=== PATIENT | female | born 1940 | race Caucasian/White ===

== ENCOUNTER 2018-02-04 18:12 | Inpatient (IN) | payer MEDICARE, MEDICAID ==
[~2018-02-04] VITALS: Ht 165.1 cm; Wt 93.0 kg
[2018-02-04 20:45] VITALS: BP 133/50
--- NOTE | 2018-02-04 21:00 | NUR ---
Admitting 77 y/o F admitted to [facility] for S/P L Total Hip Replacement done by Dr. Muller on 01/31/18. Arrived via ambulance accompanied by 2 EMT's. No acute distress noted. Verbally responsive, mainly Congolese speaking but can communicate basic needs in nigerien. Routine admission care done. Dr. Arechiga made aware of pt arrival and med recon. Medication reconciliation completed. Skin intact other than left hip incision. Per Xuan RN at [facility], unsure if first dressing complete. Dressing dry and intact. Dr. Vergara made aware of patient admission. All safety measures and fall precautions maintained. Call light and personal belongings within reach. Will continue to monitor.
[2018-02-04] MEDS ORDERED: Z GUARD REMEDY PASTE 57 GM TUBE TOP PRN (21:45)
[2018-02-04] MEDS ORDERED: ALLO100T PO (21:56)
[2018-02-04] MEDS ORDERED: ASPI-612 PO (21:56)
[2018-02-04] MEDS ORDERED: ACET-73 PO (21:56)
[2018-02-04] MEDS ORDERED: SITA1TAB2 PO (21:56)
[2018-02-04] MEDS ORDERED: MELO15TA13 PO (21:56)
[2018-02-04] MEDS ORDERED: METO-357 PO (21:56)
[2018-02-04] MEDS ORDERED: ATOR20TA PO (21:56)
[2018-02-04] MEDS ORDERED: MELO-105 PO (21:56)
[2018-02-04] MEDS ORDERED: CELE200C PO (21:56)
[2018-02-04] MEDS ORDERED: HYDR12.55 PO (21:56)
[2018-02-04] MEDS ORDERED: LEVO125T8 PO (21:56)
[2018-02-04] MEDS ORDERED: OMEP20CA10 PO (21:56)
[2018-02-04] MEDS ORDERED: ASPI81TA31 PO (21:56)
[2018-02-04] MEDS ORDERED: DEXTROSE 50% 50 ML DISP.SYRIN IV PRN (22:30)
[2018-02-04] MEDS: ZOLPIDEM 5 MG TABLET PO PRN (23:23)
[2018-02-05 04:00] VITALS: BP 146/71
[2018-02-05] MEDS: PANTOPRAZOLE SODIUM 40 MG TABLET.DR PO SCH (06:30)
[2018-02-05] MEDS: LEVOTHYROXINE SODIUM 125 MCG TABLET PO SCH (06:31)
[2018-02-05] MEDS: BLOOD SUGAR DIAGNOSTIC 1 EACH STRIP VI SCH ×4 (06:31→22:04)
[2018-02-05 06:32] LABS: BASOPHILS # (AUTO) 0.1 K/uL (0.0-8.0); BASOPHILS % (AUTO) 0.8 % (0.0-2.0); EOSINOPHILS # (AUTO) 0.5 K/uL (0.0-0.7); EOSINOPHILS % (AUTO) 5.3 % (0.0-7.0); HEMATOCRIT 25.4 % (31.2-41.9); HEMOGLOBIN 8.7 g/dL (10.9-14.3); LYMPHOCYTES # (AUTO) 2.4 K/uL (20.0-40.0); LYMPHOCYTES % (AUTO) 27.3 % (20.5-51.5); MEAN CORPUSCULAR HEMOGLOBIN 29.6 uug (24.7-32.8); MEAN CORPUSCULAR HGB CONC 34 g/dL (32.3-35.6); MEAN CORPUSCULAR VOLUME 86.5 fL (75.5-95.3); MONOCYTES # (AUTO) 0.6 K/uL (2.0-10.0); MONOCYTES % (AUTO) 6.9 % (0.0-11.0); NEUTROPHILS # (AUTO) 5.2 K/uL (1.8-8.9); NEUTROPHILS % (AUTO) 59.7 % (38.5-71.5); PLATELET COUNT (AUTO) 233 K/uL (179-408); RED BLOOD CELL COUNT(AUTO) 2.94 MIL/uL (3.63-4.92); WHITE BLOOD COUNT (AUTO) 8.7 K/uL (3.8-11.8)
--- NOTE | 2018-02-05 06:49 | NUR ---
Pt slept comfortably throughout shift, no complaints of pain through out shift. All due medications given as ordered, tolerated well. All needs anticipated and met accordingly. Blood sugar checked and noted with sugar of 104. Safety maintained. Call light and all personal belongings within reach. Will continue to monitor. Will endorse to oncoming shift.
[2018-02-05 07:20] LABS: ALANINE AMINOTRANSFERASE 17 U/L (14-59); ALKALINE PHOSPHATASE 67 U/L (50-136); ASPARTATE AMINOTRANSFERASE 20 U/L (15-37); BILIRUBIN,TOTAL 0.9 mg/dL (0.2-1.0); CARBON DIOXIDE 27 mmol/L (21-32); CHLORIDE 101 mmol/L (98-107); CHOLESTEROL 101 mg/dL (<200); CREATININE 0.6 mg/dL (0.6-1.3); GLUCOSE 104 mg/dL (74-106); HDL CHOLESTEROL 41 mg/dL (40-60); MAGNESIUM 1.9 mg/dL (1.8-2.4); PHOSPHOROUS 3.4 mg/dL (2.5-4.9); POTASSIUM 4.2 mmol/L (3.5-5.1); TOTAL PROTEIN, SERUM 5.6 g/dL (6.4-8.2); TRIGLYCERIDES 72 MG/DL (30-150); UREA NITROGEN, BLOOD 7 mg/dL (7-18)
--- NOTE | 2018-02-05 07:30 | NUR ---
Rec'd pt in bed awake. A & O x4. No s/s of acute distress noted. Pt s/p left hip arthroplasty. Surgical incision site dressing in c/d/i. Denies pain at this time. Pending PT eval for weight bearing status to L Hip. All needs met at this time. Call light within reach. Will continue to monitor for change.
[2018-02-05] MEDS: ASPIRIN 325 MG TABLET PO SCH (08:21)
[2018-02-05] MEDS: MELOXICAM 7.5 MG TABLET PO SCH (08:21)
[2018-02-05] MEDS: ALLOPURINOL 100 MG TABLET PO SCH ×2 (08:21→16:47)
[2018-02-05] MEDS: HYDROCHLOROTHIAZIDE 12.5 MG CAPSULE PO SCH (08:21)
[2018-02-05] MEDS: METOPROLOL SUCCINATE XL 50 MG TAB.SR.24H PO SCH (08:21)
--- NOTE | 2018-02-05 08:30 | NUR ---
Full SBAR report given to RICK Miranad. Pt will transfer to ARU.
[2018-02-05] MEDS ORDERED: Medication Not On Formulary EA (Hydrochlorothiazide 12.5 MG) PO SCH (09:00)
[2018-02-05] MEDS ORDERED: Medication Not On Formulary EA (Meloxicam (Mobic) 15 MG) PO SCH (09:00)
--- NOTE | 2018-02-05 09:00 | NUR ---
Received patient awake, alert x4. Not in any form of distress. Original surgical dressing in place, dry and intact no discharges noted. With tolerble pain. Oriented about therapy schedule.
[2018-02-05] MEDS: LINAGLIPTIN 5 MG TABLET PO SCH (09:46)
[2018-02-05] MEDS: METFORMIN HCL 500 MG TABLET PO SCH ×2 (09:46→17:39)
--- NOTE | 2018-02-05 10:20 | NUR ---
Informed Dr. Vergara over pain over left hip unable to rate, Bhatti-knapp scale of 6/10. Ordered OxyIR 5 mg q4hr PRN
[2018-02-05] MEDS: OXYCODONE HCL 5 MG TABLET PO PRN ×2 (10:30→15:39)
[2018-02-05] MEDS: INSULIN REGULAR, HUMAN 300 UNIT/3 ML VIAL SQ PRN ×2 (12:14→16:47)
[2018-02-05 14:49] LABS: IRON, SERUM 27 ug/dL (50-175)
[2018-02-05] MEDS ORDERED: VALS160T2 PO (17:51)
[2018-02-05 18:02] VITALS: BP 111/60
[2018-02-05] MEDS: VALSARTAN 160 MG TABLET PO SCH (18:05)
[2018-02-05 20:11] VITALS: BP 122/69
--- NOTE | 2018-02-05 20:28 | NUR ---
SBAR report received. aaox4 patient had a left total hip replacement by Dr Muller on 01/31/18 in [facility]. VSS Needs attended. Left hip dressing clean dry and intact. No acute distress noted.Continent of bowel and bladder. Denies any pain at this time. Patient had one episode of vomiting this shift. Will monitor for further nausea/vomiting.
[2018-02-05] MEDS: DOCUSATE SODIUM 100 MG CAPSULE PO SCH (22:00)
[2018-02-05] MEDS: ATORVASTATIN 20 MG TABLET PO SCH (22:01)
[2018-02-05] MEDS: ZOLPIDEM 5 MG TABLET PO PRN (22:06)
[2018-02-05] MEDS: FERROUS GLUCONATE 324 MG TABLET PO SCH (22:11)
--- NOTE | 2018-02-06 05:31 | NUR ---
slept well most of the shift. Tolerated po meds well. Kept comfortable. needs attended. VSS. no complaints presented so far during shift.
[2018-02-06 05:55] VITALS: BP 134/60
[2018-02-06] MEDS: LEVOTHYROXINE SODIUM 125 MCG TABLET PO SCH (06:36)
[2018-02-06] MEDS: PANTOPRAZOLE SODIUM 40 MG TABLET.DR PO SCH (06:36)
[2018-02-06] MEDS: BLOOD SUGAR DIAGNOSTIC 1 EACH STRIP VI SCH ×4 (06:38→20:44)
[2018-02-06 08:00] VITALS: BP 128/67
--- NOTE | 2018-02-06 08:00 | NUR ---
Patient noted resting in bed with eyes closed, no complaints of pain at this time, no signs of distress, call light in reach, bed locked and in lowest position, all needs met at this time
[2018-02-06] MEDS: LINAGLIPTIN 5 MG TABLET PO SCH (08:34)
[2018-02-06] MEDS: MELOXICAM 7.5 MG TABLET PO SCH (08:34)
[2018-02-06] MEDS: METFORMIN HCL 500 MG TABLET PO SCH ×2 (08:34→17:33)
[2018-02-06] MEDS: ASPIRIN 325 MG TABLET PO SCH (08:34)
[2018-02-06] MEDS: HYDROCHLOROTHIAZIDE 12.5 MG CAPSULE PO SCH (08:34)
[2018-02-06] MEDS: ALLOPURINOL 100 MG TABLET PO SCH ×2 (08:34→17:33)
[2018-02-06] MEDS: FERROUS GLUCONATE 324 MG TABLET PO SCH ×2 (08:35→20:37)
[2018-02-06] MEDS: METOPROLOL SUCCINATE XL 50 MG TAB.SR.24H PO SCH (08:35)
[2018-02-06] MEDS: VALSARTAN 160 MG TABLET PO SCH (08:35)
--- NOTE | 2018-02-06 12:00 | NUR ---
WOUND CARE CONSULT: PT PRESENTS WITH INTACT SKIN, FEW SCRATCH LIPSCOMB ON BUTTOCKS, PRESENT ON ADMISSION. PT IS CONTINENT AND ABLE TO ASSIST WITH TURNING AND REPOSITIONING. WILL SEE PRN. DISCUSSED SKIN PROTECTION WITH NURSING STAFF. MD IN AGREEMENT WITH PLAN OF CARE.
[2018-02-06 16:00] VITALS: BP 122/75
[2018-02-06 19:52] VITALS: BP 125/64
[2018-02-06] MEDS: DOCUSATE SODIUM 100 MG CAPSULE PO SCH (20:36)
[2018-02-06] MEDS: ATORVASTATIN 20 MG TABLET PO SCH (20:37)
[2018-02-06] MEDS: OXYCODONE HCL 5 MG TABLET PO PRN (20:37)
[2018-02-06] MEDS: ZOLPIDEM 5 MG TABLET PO PRN (20:57)
--- NOTE | 2018-02-07 04:43 | NUR ---
quiet night. no acute distress noted. VSS. needs attended. kept comfortable. pain med given as needed. tolerated po meds well. will monitor patient. fall precautions maintained.
[2018-02-07 06:32] VITALS: BP 115/61
[2018-02-07] MEDS: LEVOTHYROXINE SODIUM 125 MCG TABLET PO SCH (06:41)
[2018-02-07] MEDS: PANTOPRAZOLE SODIUM 40 MG TABLET.DR PO SCH (06:41)
[2018-02-07 08:00] VITALS: BP 123/59
[2018-02-07] MEDS: ASPIRIN 325 MG TABLET PO SCH (08:48)
[2018-02-07] MEDS: LINAGLIPTIN 5 MG TABLET PO SCH (08:48)
[2018-02-07] MEDS: METFORMIN HCL 500 MG TABLET PO SCH ×2 (08:49→17:45)
[2018-02-07] MEDS: HYDROCHLOROTHIAZIDE 12.5 MG CAPSULE PO SCH (08:49)
[2018-02-07] MEDS: MELOXICAM 7.5 MG TABLET PO SCH (08:49)
[2018-02-07] MEDS: ALLOPURINOL 100 MG TABLET PO SCH ×2 (08:49→17:45)
[2018-02-07] MEDS: METOPROLOL SUCCINATE XL 50 MG TAB.SR.24H PO SCH (08:51)
[2018-02-07] MEDS: FERROUS GLUCONATE 324 MG TABLET PO SCH ×2 (08:51→20:27)
[2018-02-07] MEDS: VALSARTAN 160 MG TABLET PO SCH (08:52)
[2018-02-07 16:00] VITALS: BP 111/58
--- NOTE | 2018-02-07 19:10 | NUR ---
In bed, awake, denies any pain/discomforts at this time. Safety measures and fall precaution maintained. Continue care as planned.
[2018-02-07 19:30] VITALS: BP 127/56
[2018-02-07] MEDS: DOCUSATE SODIUM 100 MG CAPSULE PO SCH (20:27)
[2018-02-07] MEDS: ATORVASTATIN 20 MG TABLET PO SCH (20:27)
[2018-02-07] MEDS: OXYCODONE HCL 5 MG TABLET PO PRN (20:31)
--- NOTE | 2018-02-07 22:17 | NUR ---
INTERDISCIPLINARY TEAM CONFERENCE
[2018-02-08] MEDS: LEVOTHYROXINE SODIUM 125 MCG TABLET PO SCH (06:46)
[2018-02-08] MEDS: PANTOPRAZOLE SODIUM 40 MG TABLET.DR PO SCH (06:46)
[2018-02-08] MEDS: METFORMIN HCL 500 MG TABLET PO SCH ×2 (08:03→17:09)
[2018-02-08] MEDS: MELOXICAM 7.5 MG TABLET PO SCH (08:03)
[2018-02-08] MEDS: ASPIRIN 325 MG TABLET PO SCH (08:03)
[2018-02-08] MEDS: LINAGLIPTIN 5 MG TABLET PO SCH (08:04)
[2018-02-08] MEDS: HYDROCHLOROTHIAZIDE 12.5 MG CAPSULE PO SCH (08:04)
[2018-02-08] MEDS: METOPROLOL SUCCINATE XL 50 MG TAB.SR.24H PO SCH (08:04)
[2018-02-08] MEDS: VALSARTAN 160 MG TABLET PO SCH (08:04)
[2018-02-08] MEDS: ALLOPURINOL 100 MG TABLET PO SCH ×2 (08:04→17:08)
[2018-02-08] MEDS: OXYCODONE HCL 5 MG TABLET PO PRN ×2 (08:05→21:20)
[2018-02-08] MEDS: FERROUS GLUCONATE 324 MG TABLET PO SCH ×2 (08:05→20:27)
[2018-02-08] MEDS: MIRALAX 17 GM POWD.PACK PO PRN (12:53)
--- NOTE | 2018-02-08 13:51 | NUR ---
Received patient awake, farsi speaking in stable condition. not in distress. FOr stool collection occult blood. Miralax PRN given for no BM. will continue monitor
[2018-02-08 15:53] VITALS: BP 90/46
[2018-02-08 19:40] VITALS: BP 107/55
[2018-02-08] MEDS: ATORVASTATIN 20 MG TABLET PO SCH (20:28)
[2018-02-08] MEDS: DOCUSATE SODIUM 100 MG CAPSULE PO SCH (20:28)
[2018-02-08] MEDS: ZOLPIDEM 5 MG TABLET PO PRN (20:28)
[2018-02-09 04:30] VITALS: BP 111/54
[2018-02-09] MEDS: PANTOPRAZOLE SODIUM 40 MG TABLET.DR PO SCH (06:26)
[2018-02-09] MEDS: LEVOTHYROXINE SODIUM 125 MCG TABLET PO SCH (06:30)
--- NOTE | 2018-02-09 06:51 | NUR ---
Patient slept comfortable throughout the night. No c/o pain and discomfort. No acute distress. No SOB. Kept clean and dry. All needs attended to promptly. Call light within reach. Will continue to monitor.
[2018-02-09 08:00] VITALS: BP 108/42
--- NOTE | 2018-02-09 08:30 | NUR ---
Received patient awake, alert x3. Not in any form of distress. Tolerable pain over left hip. Morning care done, assisted to commode. Blood pressure of 108/42 HR- 77, asymptomatic. No dizziness or SOB.
[2018-02-09] MEDS: LINAGLIPTIN 5 MG TABLET PO SCH (08:54)
[2018-02-09] MEDS: FERROUS GLUCONATE 324 MG TABLET PO SCH ×2 (08:54→21:05)
[2018-02-09] MEDS: METFORMIN HCL 500 MG TABLET PO SCH ×2 (08:54→17:16)
[2018-02-09] MEDS: ASPIRIN 325 MG TABLET PO SCH (08:54)
[2018-02-09] MEDS: ALLOPURINOL 100 MG TABLET PO SCH ×2 (08:55→17:16)
[2018-02-09] MEDS: MELOXICAM 7.5 MG TABLET PO SCH (08:55)
[2018-02-09] MEDS: METOPROLOL SUCCINATE XL 50 MG TAB.SR.24H PO SCH (08:56)
[2018-02-09] MEDS: VALSARTAN 160 MG TABLET PO SCH (08:56)
[2018-02-09] MEDS: HYDROCHLOROTHIAZIDE 12.5 MG CAPSULE PO SCH (08:57)
[2018-02-09] MEDS: MIRALAX 17 GM POWD.PACK PO PRN (13:48)
[2018-02-09 16:18] VITALS: BP 95/53
--- NOTE | 2018-02-09 19:10 | NUR ---
Received patient awake, watching [employer] movie at this time. Presented complaint of muscle pain at the upper thigh but refused pain medication. No swelling, redness noted on affected area. Skin intact. Will continue to monitor. Safety measure and fall precaution maintained. Continue care as planned.
[2018-02-09 20:22] VITALS: BP 114/60
[2018-02-09 20:27] LABS: *OCCULT BLOOD STOOL NEGATIVE (NEGATIVE)
[2018-02-09] MEDS: DOCUSATE SODIUM 100 MG CAPSULE PO SCH (21:05)
[2018-02-09] MEDS: ZOLPIDEM 5 MG TABLET PO PRN (21:05)
[2018-02-09] MEDS: ATORVASTATIN 20 MG TABLET PO SCH (21:05)
[2018-02-10 05:37] VITALS: BP 115/63
[2018-02-10] MEDS: LEVOTHYROXINE SODIUM 125 MCG TABLET PO SCH (06:38)
[2018-02-10] MEDS: PANTOPRAZOLE SODIUM 40 MG TABLET.DR PO SCH (06:38)
--- NOTE | 2018-02-10 06:53 | NUR ---
Shift End Report: Vs stable. Slept well. No fall/injury reported. All needs attended and met. No significant event reported. Continue care as planned.
--- NOTE | 2018-02-10 07:30 | NUR ---
Patient awake, alert, in bed not in any form of acute distress. She denies any pain or discomfort at this time. Assisted with her needs. Call light placed within reach.
[2018-02-10] MEDS: ASPIRIN 325 MG TABLET PO SCH (08:34)
[2018-02-10] MEDS: LINAGLIPTIN 5 MG TABLET PO SCH (08:35)
[2018-02-10] MEDS: FERROUS GLUCONATE 324 MG TABLET PO SCH ×2 (08:35→21:08)
[2018-02-10] MEDS: MELOXICAM 7.5 MG TABLET PO SCH (08:36)
[2018-02-10] MEDS: ALLOPURINOL 100 MG TABLET PO SCH ×2 (08:36→17:13)
[2018-02-10] MEDS: METFORMIN HCL 500 MG TABLET PO SCH ×2 (08:36→17:13)
[2018-02-10] MEDS: HYDROCHLOROTHIAZIDE 12.5 MG CAPSULE PO SCH (08:37)
[2018-02-10] MEDS: VALSARTAN 160 MG TABLET PO SCH (10:18)
[2018-02-10] MEDS: METOPROLOL SUCCINATE XL 50 MG TAB.SR.24H PO SCH (10:18)
--- NOTE | 2018-02-10 15:45 | NUR ---
Patient out of bed, ambulating with OT with a walker, not in distress and no complain of any discomfort at this time.
[2018-02-10 16:34] VITALS: BP 100/54
--- NOTE | 2018-02-10 19:20 | NUR ---
Sleeping during initial rounds. No s/s of pain/discomforts noted. No respiratory distress. Safety measures and fall precaution maintained. Continue care as planned.
[2018-02-10 19:30] VITALS: BP 105/52
[2018-02-10] MEDS: DOCUSATE SODIUM 100 MG CAPSULE PO SCH (21:07)
[2018-02-10] MEDS: ATORVASTATIN 20 MG TABLET PO SCH (21:08)
[2018-02-10] MEDS: ZOLPIDEM 5 MG TABLET PO PRN (21:10)
[2018-02-11] MEDS: OXYCODONE HCL 5 MG TABLET PO PRN ×2 (00:26→13:18)
[2018-02-11 04:00] VITALS: BP 122/67
[2018-02-11] MEDS: PANTOPRAZOLE SODIUM 40 MG TABLET.DR PO SCH (06:16)
[2018-02-11] MEDS: LEVOTHYROXINE SODIUM 125 MCG TABLET PO SCH (06:56)
--- NOTE | 2018-02-11 07:05 | NUR ---
Shift End Report: VS stable.Medicated once for pain, effective. No fall/injury. All needs attended and met. Continue current rehab plan of care.
[2018-02-11 07:30] VITALS: BP 114/62
--- NOTE | 2018-02-11 08:15 | NUR ---
Patient sitting on the side of bed eating breakfast with family at bedside. Patient remains alert, not in any form of distress. No complain of any discomfort at this time. Call light placed within reach.
[2018-02-11] MEDS: ALLOPURINOL 100 MG TABLET PO SCH ×2 (09:13→17:30)
[2018-02-11] MEDS: METFORMIN HCL 500 MG TABLET PO SCH ×2 (09:13→17:30)
[2018-02-11] MEDS: LINAGLIPTIN 5 MG TABLET PO SCH (09:13)
[2018-02-11] MEDS: HYDROCHLOROTHIAZIDE 12.5 MG CAPSULE PO SCH (09:14)
[2018-02-11] MEDS: ASPIRIN 325 MG TABLET PO SCH (09:14)
[2018-02-11] MEDS: FERROUS GLUCONATE 324 MG TABLET PO SCH ×2 (09:15→21:01)
[2018-02-11] MEDS: MELOXICAM 7.5 MG TABLET PO SCH (09:15)
[2018-02-11] MEDS: METOPROLOL SUCCINATE XL 50 MG TAB.SR.24H PO SCH (09:15)
[2018-02-11] MEDS: VALSARTAN 80 MG TABLET PO SCH (10:20)
[2018-02-11 16:17] VITALS: BP 102/48
--- NOTE | 2018-02-11 19:20 | NUR ---
Sleeping during rounds. No s/s of pain/discomforts noted. Safety measures nad fall precaution maintained. Continue care as planned.
[2018-02-11 19:30] VITALS: BP 113/48
[2018-02-11] MEDS: DOCUSATE SODIUM 100 MG CAPSULE PO SCH (21:01)
[2018-02-11] MEDS: ZOLPIDEM 5 MG TABLET PO PRN (21:03)
[2018-02-12 04:00] VITALS: BP 115/56
[2018-02-12] MEDS: PANTOPRAZOLE SODIUM 40 MG TABLET.DR PO SCH (06:41)
[2018-02-12] MEDS: LEVOTHYROXINE SODIUM 125 MCG TABLET PO SCH (06:41)
--- NOTE | 2018-02-12 07:04 | NUR ---
Shift End Report: VS stable. No complaint presented all night. Slept well. No fall/injury. All needs attended and met. Both pedal still with pitting edema 2+. Discouraged use of tight socks at this time and elevate BLE with pillows at all times to reduce edema. Continue care as planned.
[2018-02-12 07:09] LABS: BASOPHILS # (AUTO) 0.2 K/uL (0.0-8.0); BASOPHILS % (AUTO) 1.9 % (0.0-2.0); EOSINOPHILS # (AUTO) 0.6 K/uL (0.0-0.7); HEMATOCRIT 26.8 % (31.2-41.9); LYMPHOCYTES # (AUTO) 2.1 K/uL (20.0-40.0); LYMPHOCYTES % (AUTO) 26.8 % (20.5-51.5); MEAN CORPUSCULAR HEMOGLOBIN 29.9 uug (24.7-32.8); MEAN CORPUSCULAR HGB CONC 34 g/dL (32.3-35.6); MEAN CORPUSCULAR VOLUME 89.2 fL (75.5-95.3); MONOCYTES # (AUTO) 0.5 K/uL (2.0-10.0); MONOCYTES % (AUTO) 6.5 % (0.0-11.0); NEUTROPHILS # (AUTO) 4.5 K/uL (1.8-8.9); NEUTROPHILS % (AUTO) 57.8 % (38.5-71.5); PLATELET COUNT (AUTO) 384 K/uL (179-408); RED BLOOD CELL COUNT(AUTO) 3.01 MIL/uL (3.63-4.92); WHITE BLOOD COUNT (AUTO) 7.8 K/uL (3.8-11.8)
[2018-02-12 07:19] LABS: CARBON DIOXIDE 31 mmol/L (21-32); CHLORIDE 102 mmol/L (98-107); CREATININE 0.8 mg/dL (0.6-1.3); GLUCOSE 98 mg/dL (74-106); POTASSIUM 4.3 mmol/L (3.5-5.1); UREA NITROGEN, BLOOD 7 mg/dL (7-18)
[2018-02-12 08:00] VITALS: BP 130/63
[2018-02-12] MEDS: METFORMIN HCL 500 MG TABLET PO SCH ×2 (08:37→17:38)
[2018-02-12] MEDS: ALLOPURINOL 100 MG TABLET PO SCH ×2 (08:37→17:38)
[2018-02-12] MEDS: HYDROCHLOROTHIAZIDE 12.5 MG CAPSULE PO SCH (08:37)
[2018-02-12] MEDS: MELOXICAM 7.5 MG TABLET PO SCH (08:37)
[2018-02-12] MEDS: LINAGLIPTIN 5 MG TABLET PO SCH (08:37)
[2018-02-12] MEDS: ASPIRIN 325 MG TABLET PO SCH (08:37)
[2018-02-12] MEDS: METOPROLOL SUCCINATE XL 50 MG TAB.SR.24H PO SCH (08:38)
[2018-02-12] MEDS: VALSARTAN 80 MG TABLET PO SCH (08:39)
[2018-02-12] MEDS: FERROUS GLUCONATE 324 MG TABLET PO SCH ×2 (08:40→20:47)
--- NOTE | 2018-02-12 08:45 | NUR ---
Received patient, awake, alert x4. Not in any form of distress. With pain over left hip rated as 7/10. PRN OxyIR 5mg PRN given. Up with physical therapy, tolerating well. Original dressing intact, reinforced.
[2018-02-12] MEDS: OXYCODONE HCL 5 MG TABLET PO PRN ×2 (09:09→20:47)
--- NOTE | 2018-02-12 10:47 | NUR ---
Up with occupational therapy, tolerating well. Not in any form of distress. According to patient one of the Dr's said his blood was ok, patient refused blood draw. Explained to patient that we needed to check his blood levels. Patient agreed but said he may not need blood transfusion. Addendum: 02/12/18 at 1050 by FRANK YAO RN RN Charted on wrong patient.
--- NOTE | 2018-02-12 10:50 | NUR ---
Follow-up with ambulance for follow-up with Dr. Muller. Informed Dr. Muller's office that patient may be late as ambulance pick-up has not arrived. Clinic said that patient needs to be by the clinic before 12:00 noon
--- NOTE | 2018-02-12 11:50 | NUR ---
Out on pass via gurney, accompanied by ambulance staff. Vital signs stable,. Tolerable pain over left hip. Paper works and X-ray CD given to ambulance staff.
--- NOTE | 2018-02-12 14:10 | NUR ---
Back from ortho follow-up. Dr. Muller recommended: Continue physial therapy for ambulation. Continue hip-precautions for 4 more weeks including abduction pillow. When discharge to home continue ASA 325 mg BID for 1 month from surgery. Continue Mobic, pain medication Ambien, Iron. Continue icing left hip on daily basis. Return to clinic 2 weeks. No X-Rays needed for next office visit. Patient stable, not in any form of distress. Tolerable pain over left hip, patient refused pain medications at this time.
--- NOTE | 2018-02-12 18:24 | NUR ---
Dr. Vergara informed of Dr. Muller's recommendations.
--- NOTE | 2018-02-12 20:00 | NUR ---
Received pt in bed alert and oriented x 4, in no acute distress. Luxembourger speaking. Made aware of plan of care. Safe environment implemented. Call light within reach. Safe environment implemented.
[2018-02-12 20:17] VITALS: BP 107/61
[2018-02-12] MEDS: DOCUSATE SODIUM 100 MG CAPSULE PO SCH (20:49)
[2018-02-12] MEDS: ZOLPIDEM 5 MG TABLET PO PRN (21:01)
[2018-02-13 05:12] VITALS: BP 123/55
[2018-02-13] MEDS: LEVOTHYROXINE SODIUM 125 MCG TABLET PO SCH (06:22)
[2018-02-13] MEDS: PANTOPRAZOLE SODIUM 40 MG TABLET.DR PO SCH (06:22)
--- NOTE | 2018-02-13 06:33 | NUR ---
Stable condition, all needs attended to. Pain management provided as ordered. Safe environment implemented. Call light within reach.
--- NOTE | 2018-02-13 08:04 | NUR ---
Patient noted resting in bed with eyes closed, no complaints of pain noted, no signs of distress, call light in reach, bed locked and in lowest position, x2 bed rails
[2018-02-13] MEDS: MELOXICAM 7.5 MG TABLET PO SCH (08:21)
[2018-02-13] MEDS: ASPIRIN 325 MG TABLET PO SCH (08:21)
[2018-02-13] MEDS: HYDROCHLOROTHIAZIDE 12.5 MG CAPSULE PO SCH (08:21)
[2018-02-13] MEDS: LINAGLIPTIN 5 MG TABLET PO SCH (08:21)
[2018-02-13] MEDS: METOPROLOL SUCCINATE XL 50 MG TAB.SR.24H PO SCH (08:22)
[2018-02-13] MEDS: METFORMIN HCL 500 MG TABLET PO SCH ×2 (08:22→17:23)
[2018-02-13] MEDS: OXYCODONE HCL 5 MG TABLET PO PRN ×2 (08:22→17:26)
[2018-02-13] MEDS: VALSARTAN 80 MG TABLET PO SCH (08:22)
[2018-02-13] MEDS: ALLOPURINOL 100 MG TABLET PO SCH ×2 (08:22→17:23)
[2018-02-13] MEDS: FERROUS GLUCONATE 324 MG TABLET PO SCH ×2 (08:23→20:54)
[2018-02-13 08:37] VITALS: BP 126/61
[2018-02-13 15:37] VITALS: BP 96/50
[2018-02-13 19:38] VITALS: BP 114/60
--- NOTE | 2018-02-13 20:11 | NUR ---
resting in bed. awake alert and oriented x4. needs attended. left hip incision clean and dry and healing. OOB to the BR with walker. voiding well. needs attended. no acute distress noted. denies any pain at this time.
[2018-02-13] MEDS: DOCUSATE SODIUM 100 MG CAPSULE PO SCH (20:54)
[2018-02-13] MEDS: ZOLPIDEM 5 MG TABLET PO PRN (20:54)
[2018-02-14 05:44] VITALS: BP 126/74
[2018-02-14] MEDS: PANTOPRAZOLE SODIUM 40 MG TABLET.DR PO SCH (06:30)
[2018-02-14] MEDS: LEVOTHYROXINE SODIUM 125 MCG TABLET PO SCH (06:30)
[2018-02-14] MEDS: ASPIRIN 325 MG TABLET PO SCH (08:38)
[2018-02-14] MEDS: HYDROCHLOROTHIAZIDE 12.5 MG CAPSULE PO SCH (08:38)
[2018-02-14] MEDS: OXYCODONE HCL 5 MG TABLET PO PRN ×3 (08:38→20:56)
[2018-02-14] MEDS: MELOXICAM 7.5 MG TABLET PO SCH (08:38)
[2018-02-14] MEDS: LINAGLIPTIN 5 MG TABLET PO SCH (08:38)
[2018-02-14] MEDS: METFORMIN HCL 500 MG TABLET PO SCH ×2 (08:38→17:14)
[2018-02-14] MEDS: ALLOPURINOL 100 MG TABLET PO SCH ×2 (08:38→17:14)
[2018-02-14] MEDS: FERROUS GLUCONATE 324 MG TABLET PO SCH ×2 (08:39→20:55)
[2018-02-14] MEDS: METOPROLOL SUCCINATE XL 50 MG TAB.SR.24H PO SCH (08:39)
[2018-02-14] MEDS: VALSARTAN 80 MG TABLET PO SCH (08:39)
--- NOTE | 2018-02-14 13:11 | NUR ---
INTERDISCIPLINARY TEAM CONFERENCE
[2018-02-14 16:00] VITALS: BP 125/70
[2018-02-14 19:30] VITALS: BP 115/59
[2018-02-14] MEDS: DOCUSATE SODIUM 100 MG CAPSULE PO SCH (20:55)
[2018-02-14] MEDS: ZOLPIDEM 5 MG TABLET PO PRN (20:58)
--- NOTE | 2018-02-14 21:35 | NUR ---
SBAR report received. resting in bed. aaox4 OOB to bedside commode. Voiding well. No BM noted thisft. VSS. Kept comfortable. medicated for pain for left hip. 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 making needs known. no acute distress noted. fall precautions maintained. siderails up for safety. Call henao within reach. sleeping pill also given per patient's request. will monitor patient.
[2018-02-15 04:00] VITALS: BP 118/64
[2018-02-15] MEDS: LEVOTHYROXINE SODIUM 125 MCG TABLET PO SCH (06:33)
[2018-02-15] MEDS: PANTOPRAZOLE SODIUM 40 MG TABLET.DR PO SCH (06:33)
--- NOTE | 2018-02-15 07:30 | NUR ---
on bed , resting. denies any discomfort. comfortable.
[2018-02-15] MEDS: HYDROCHLOROTHIAZIDE 12.5 MG CAPSULE PO SCH (08:31)
[2018-02-15] MEDS: ASPIRIN 325 MG TABLET PO SCH (08:31)
[2018-02-15] MEDS: MELOXICAM 7.5 MG TABLET PO SCH (08:31)
[2018-02-15] MEDS: LINAGLIPTIN 5 MG TABLET PO SCH (08:31)
[2018-02-15] MEDS: METFORMIN HCL 500 MG TABLET PO SCH ×2 (08:32→17:20)
[2018-02-15] MEDS: FERROUS GLUCONATE 324 MG TABLET PO SCH ×2 (08:32→20:37)
[2018-02-15] MEDS: ALLOPURINOL 100 MG TABLET PO SCH ×2 (08:32→17:20)
[2018-02-15] MEDS: METOPROLOL SUCCINATE XL 50 MG TAB.SR.24H PO SCH (08:35)
[2018-02-15] MEDS: VALSARTAN 80 MG TABLET PO SCH (08:35)
--- NOTE | 2018-02-15 10:00 | NUR ---
spouse at bedside, supportive of patient care. watching tv, patient enjoying company.
[2018-02-15 16:05] VITALS: BP 91/48
--- NOTE | 2018-02-15 16:20 | NUR ---
bp low, fluids intake encouraged, took a glass of water and will drink fluids a least 1 glass q hr. spouse at bedside, supportive of patient care
--- NOTE | 2018-02-15 17:24 | NUR ---
took fluids well for dinner, encouraged and reinforced. daughter in law , [place] [phone] in supportive of patient care. anxious for possible dc 02/17/18
[2018-02-15 17:51] VITALS: BP 108/56
[2018-02-15 19:59] VITALS: BP 91/52
[2018-02-15] MEDS: DOCUSATE SODIUM 100 MG CAPSULE PO SCH (20:37)
[2018-02-15] MEDS: OXYCODONE HCL 5 MG TABLET PO PRN (20:38)
[2018-02-15] MEDS: ZOLPIDEM 5 MG TABLET PO PRN (21:15)
--- NOTE | 2018-02-15 23:33 | NUR ---
SBAR report received. aaox4 OOB to the BR with wheelchair. Voiding without difficulty. Needs attended. complained of pain on the left hip, oxy 5mg po given with relief noted. took meds without any difficulty. patient for possible discharge in am. requested also sleeping pill, given as ordered. Fall precautions maintained. Siderails up for safety. left hip icision healing, clean dry and intact. no drainage noted. will monitor patient. VSS.
[2018-02-16 04:37] VITALS: BP 100/55
[2018-02-16] MEDS: LEVOTHYROXINE SODIUM 125 MCG TABLET PO SCH (06:34)
[2018-02-16] MEDS: PANTOPRAZOLE SODIUM 40 MG TABLET.DR PO SCH (06:34)
--- NOTE | 2018-02-16 06:47 | NUR ---
slept most of the shift. OOB to the BR with walker. voiding well. no BM noted this shift. kept comfortable. fall precautions maintained.
--- NOTE | 2018-02-16 07:30 | NUR ---
on bed, resting, anxious to go home. denies pain at this time
[2018-02-16] MEDS: MELOXICAM 7.5 MG TABLET PO SCH (08:17)
[2018-02-16] MEDS: METFORMIN HCL 500 MG TABLET PO SCH (08:17)
[2018-02-16] MEDS: LINAGLIPTIN 5 MG TABLET PO SCH (08:17)
[2018-02-16] MEDS: FERROUS GLUCONATE 324 MG TABLET PO SCH (08:17)
[2018-02-16] MEDS: ALLOPURINOL 100 MG TABLET PO SCH (08:18)
[2018-02-16] MEDS: ASPIRIN 325 MG TABLET PO SCH (08:18)
[2018-02-16 09:00] VITALS: BP 113/65
[2018-02-16] MEDS: METOPROLOL SUCCINATE XL 50 MG TAB.SR.24H PO SCH (09:00)
[2018-02-16] MEDS: HYDROCHLOROTHIAZIDE 12.5 MG CAPSULE PO SCH (09:00)
[2018-02-16] MEDS: VALSARTAN 80 MG TABLET PO SCH (09:00)
--- NOTE | 2018-02-16 09:40 | NUR ---
seen by dr ingram. aware bp low yesterday and today, held am meds , no new order
--- NOTE | 2018-02-16 12:20 | NUR ---
spouse at bedside, supportive of patient care. anxious to go home ,discuss start to prepare for discharge by 1:30 pm, verbalized understanding
--- NOTE | 2018-02-16 14:42 | NUR ---
discharge patient home with instructions and belongings, equipment. evidence technician by daughter in law, tsering via phone, appreciative of care. left in stable condition via ambulance.
== END 2018-02-16 14:30 | disposition home health service (06) | DRG 559 ==
LOC: MED 21:35
PROVIDERS: ADMIT Physical Medicine & Rehabilitation Pain Medicine; ATTEND Physical Medicine & Rehabilitation Pain Medicine
DX: Z47.1 Aftercare following joint replacement surgery (principal); E43 Unspecified severe protein-calorie malnutrition; D68.59 Other primary thrombophilia; Z96.642 Presence of left artificial hip joint; I10 Essential (primary) hypertension; E11.9 Type 2 diabetes mellitus without complications; K21.9 Gastro-esophageal reflux disease without esophagitis; E03.9 Hypothyroidism, unspecified; D64.9 Anemia, unspecified; Z68.34 Body mass index [BMI] 34.0-34.9, adult; E66.9 Obesity, unspecified; E78.5 Hyperlipidemia, unspecified; G89.29 Other chronic pain; M19.90 Unspecified osteoarthritis, unspecified site; M54.5 Low back pain; R26.2 Difficulty in walking, not elsewhere classified; R53.81 Other malaise; M51.36 Other intervertebral disc degeneration, lumbar region
CPT/HCPCS: 36415; 73502; 82652; 83550; 83735; 84100; 84443; 85025; 92523; 92526; 92610; 97110; 97112; 97116; 97165; 97530; 97535; G0378; J1815; J8499